=== PATIENT | female | born 1945 | race Caucasian/White ===

== ENCOUNTER 2017-08-16 09:02 | Day surgery (SDC) | payer MEDICARE, OTHER ==
[~2017-08-16] VITALS: Ht 157.5 cm; Wt 113.4 kg
[~2017-08-16 09:02] MED LIST: ABAT250V; ALLO100 PO; AMLO10 PO; ASPI81CH PO; ATEN25 PO; ATOR20 PO; Aspir-Low81 MG PO; B-100 Complex1 EACH; BENTYL20 MG PO; CHOL10002; Cipro500 MG PO; FISH OIL 1,0001 EAC1 PO; FISH1000 PO; FURO20 PO; Flagyl500 MG PO; GABA300 PO; GLIM4 PO; GLYB5 PO; HYDRA25 PO; Humalog Mi100 UNIT/4; INS70/30I SC; INSLI100I; INSR10I SC; LEVO-T125 MCG PO; LEVSOD100 PO; LEVSOD125 PO; LISI10 PO; LISI5 PO; LOPE2C PO; LUTEIN1 GM; MAGOXI400 PO; METF500 PO; METFORMIN HCL500 MG PO; METO100ER PO; MILK THISTLE140 MG; PSEU120ER; Percocet 5-3251 EACH PO; Prinivil10 MG PO; QUET25 PO; ROSU5 PO; Selenium50 MCG; Toprol Xl25 MG PO; VITAMIN D-32000 UNIT PO; Veramyst10 GM NS; Zofran Odt4 MG SL
[2017-10-23] MEDS ORDERED: OCCUVITE PO (10:01)
[2017-10-23] MEDS ORDERED: Vitamin B Comple1 EA PO (10:02)
[2017-10-23] MEDS ORDERED: LUTEIN1 GM PO (10:02)
[2017-10-23] MEDS ORDERED: AMLO10 PO (10:02)
[2017-10-23] MEDS ORDERED: HYDRA25 PO (10:03)
== END 2017-08-16 11:26 | disposition home or self-care (01) ==
LOC: ORSCSDS 09:02
PROVIDERS: Ophthalmology
PROC: 08RJ3JZ Replacement of Right Lens with Synthetic Substitute, Percutaneous Approach (ICD-10-PCS; principal; 2017-08-16 10:30)
DX: H25.11 Age-related nuclear cataract, right eye (principal); G47.33 Obstructive sleep apnea (adult) (pediatric); E11.9 Type 2 diabetes mellitus without complications; I10 Essential (primary) hypertension; Z87.891 Personal history of nicotine dependence; E03.9 Hypothyroidism, unspecified; Z79.82 Long term (current) use of aspirin; Z79.4 Long term (current) use of insulin; Z79.899 Other long term (current) drug therapy
CPT/HCPCS: 82947; J2250; J3010; J7040; V2632

== ENCOUNTER 2017-09-17 07:19 | Day surgery (SDC) | payer MEDICARE, OTHER ==
[2017-10-23] MEDS ORDERED: OCCUVITE PO (10:01)
[2017-10-23] MEDS ORDERED: Vitamin B Comple1 EA PO (10:02)
[2017-10-23] MEDS ORDERED: AMLO10 PO (10:02)
[2017-10-23] MEDS ORDERED: LUTEIN1 GM PO (10:02)
[2017-10-23] MEDS ORDERED: HYDRA25 PO (10:03)
== END 2017-09-17 23:14 | disposition home or self-care (01) ==
LOC: MOI MAM 07:19
PROC: 0HBT3ZX Excision of Right Breast, Percutaneous Approach, Diagnostic (ICD-10-PCS; principal; 2017-09-17)
DX: C50.811 Malignant neoplasm of overlapping sites of right female breast (principal); Z17.0 Estrogen receptor positive status [ER+]
CPT/HCPCS: 19083; 77065; 88305; 88342; 88360; A4648; G0279

== ENCOUNTER 2017-10-24 08:29 | Day surgery (SDC) | payer MEDICARE, OTHER ==
[~2017-10-24 08:29] MED LIST changes: +LUTEIN1 GM PO; +OCCUVITE PO; +Vitamin B Comple1 EA PO
== END 2017-10-24 22:35 | disposition home or self-care (01) ==
LOC: MOI US 08:29 → MOI MAM 08:45 → MOI US 08:45
PROC: BH40ZZZ Ultrasonography of Right Breast (ICD-10-PCS; principal; 2017-10-24)
DX: C50.111 Malignant neoplasm of central portion of right female breast (principal)
CPT/HCPCS: 19285; 77065

== ENCOUNTER 2017-11-05 08:12 | Day surgery (SDC) | payer MEDICARE, OTHER ==
[~2017-11-05] VITALS: Ht 157.5 cm; Wt 113.4 kg
== END 2017-11-05 22:39 | disposition home or self-care (01) ==
LOC: NM 08:12 → ORSCMMR 08:12 → NM 08:13 → ORSCMMR 22:39 → NM 22:39
PROVIDERS: Surgery
PROC: 0HHT0NZ Insertion of Tissue Expander into Right Breast, Open Approach (ICD-10-PCS; principal; 2017-11-05 11:00)
PROC: 07B50ZX Excision of Right Axillary Lymphatic, Open Approach, Diagnostic (ICD-10-PCS; principal; 2017-11-05 11:00)
PROC: 0HBT0ZZ Excision of Right Breast, Open Approach (ICD-10-PCS; principal; 2017-11-05 11:00)
DX: C50.111 Malignant neoplasm of central portion of right female breast (principal); D36.0 Benign neoplasm of lymph nodes; I10 Essential (primary) hypertension; G47.33 Obstructive sleep apnea (adult) (pediatric); E11.9 Type 2 diabetes mellitus without complications; E03.9 Hypothyroidism, unspecified; E66.01 Morbid (severe) obesity due to excess calories; Z68.42 Body mass index [BMI] 45.0-49.9, adult; Z79.899 Other long term (current) drug therapy
CPT/HCPCS: 38792; 76098; 82947; 88305; 88307; 88342; A9520; J0690; J1100; J2250; J2405; J3010; J7120; Q9968

== ENCOUNTER 2017-11-08 10:18 | Day surgery (SDC) | payer MEDICARE, OTHER | END 2017-11-08 14:28 | disposition home or self-care (01) | LOC: ORSCMMR 10:18 → ORD 12:00 → ORSCMMR 12:00 | PROVIDERS: Surgery | PROC: 0WH803Z Insertion of Infusion Device into Chest Wall, Open Approach (ICD-10-PCS; principal; 2017-11-08 12:00) | DX: C50.111 Malignant neoplasm of central portion of right female breast (principal); I10 Essential (primary) hypertension; E11.9 Type 2 diabetes mellitus without complications; G47.33 Obstructive sleep apnea (adult) (pediatric); E03.9 Hypothyroidism, unspecified; E66.01 Morbid (severe) obesity due to excess calories; Z68.42 Body mass index [BMI] 45.0-49.9, adult; Z79.4 Long term (current) use of insulin; Z79.899 Other long term (current) drug therapy | CPT/HCPCS: 82947; C1728; J1100; J2250; J2405; J7120 ==

== ENCOUNTER 2018-02-23 11:33 | Emergency (ER) | payer MEDICARE, OTHER ==
[~2018-02-23] VITALS: Ht 157.5 cm; Wt 113.4 kg
[2018-02-23 12:15] LABS: BASOPHILS ABSOLUTE AUTO 0.04 K/mm3 (0.00-0.23); BASOPHILS PERCENT AUTO 0 % (0-2); EOSINOPHILS ABSOLUTE AUTO 0.02 K/mm3 (0.00-0.68); EOSINOPHILS PERCENT AUTO 0 % (0-6); Hematocrit 35.1 % (33.0-51.0); Hemoglobin 11.5 g/dL (11.5-16.0); IMMATURE GRAN ABSOLUTE AUTO 0.15 K/mm3 (0.00-0.10); IMMATURE GRAN PERCENT AUTO 1 % (0-1); LYMPHOCYTES ABSOLUTE AUTO 0.68 K/mm3 (0.84-5.20); LYMPHOCYTES PERCENT AUTO 3 % (21-46); MONOCYTES ABSOLUTE AUTO 1.48 K/mm3 (0.16-1.47); MONOCYTES PERCENT AUTO 6 % (4-13); Mean Corpuscular HGB 30.6 pg (26.0-34.0); Mean Corpuscular HGB Conc 32.8 g/dL (31.5-36.5); Mean Corpuscular Volume 93 fL (80-100); Mean Platelet Volume 10.9 fL (9.1-12.4); NEUTROPHILS ABSOLUTE AUTO 20.65 K/mm3 (1.96-9.15); NEUTROPHILS PERCENT AUTO 90 % (41-73); Platelet Count 261 K/mm3 (150-400); RDW Coefficient Variation 14.6 % (11.7-14.2); RDW Standard Deviation 49.7 fL (35.1-46.3); Red Blood Cell Count 3.76 M/mm3 (3.80-5.20); White Blood Cell Count 23.02 K/mm3 (4.00-11.30)
[2018-02-23 12:34] LABS: Albumin, Blood 3.3 g/dL (3.4-5.0); Albumin/Globulin Ratio 0.7 (0.8-1.8); Bilirubin, Total 0.6 mg/dL (0.1-1.0); Bun/Creatinine Ratio 25.7 (12.0-20.0); Calcium, Blood 9.8 mg/dL (8.5-10.1); Creatinine, Blood 1.79 mg/dL (0.40-1.00); Potassium, Blood 4.4 mmol/L (3.5-5.5); Total Protein, Blood 8.3 g/dL (6.4-8.2)
[2018-02-23 12:51] LABS: Source, Urine Clean Catch
[2018-02-23 12:58] LABS: Blood, Urine 1+ (Neg); Glucose Qualitative, Urine Neg (Neg); Ketones, Urine Neg (Neg); Leukocyte Esterase, Urine 1+ (Neg); Nitrite, Urine Neg (Neg); Protein, Urine 1+ (Neg); Urobilinogen, Urine NORM (Normal)
[2018-02-23 13:03] LABS: Appearance, Urine Clear (Clear); Bilirubin, Urine 1+ (Neg); Color, Urine Yellow (P-Yellow)
[2018-02-23 13:04] LABS: Red Blood Cells, Urine 0-2 /hpf (0-2)
[2018-02-23 13:05] LABS: Squamous Epithelial Cells Few /hpf (Few); Transitional Epithelial Cells Mod /hpf (0-Rare)
[2018-02-23 13:06] LABS: Bacteria Few /hpf; Mucus Light (0-Heavy)
[2018-02-23 13:07] LABS: Granular Casts 0-2 /lpf (0); Hyaline Casts TNTC /lpf (0-2)
[2018-02-23 13:08] LABS: Renal Epithelial Rare /hpf (0-Rare); WBC Cast Rare /lpf (0)
[2018-02-23] MEDS ORDERED: CEPH500 PO (14:18)
== END 2018-02-23 16:05 | disposition home or self-care (01) ==
LOC: ER 11:33
PROVIDERS: Emergency Medicine
DX: T81.4XXA Infection following a procedure, initial encounter (principal); E11.9 Type 2 diabetes mellitus without complications; I10 Essential (primary) hypertension; E03.9 Hypothyroidism, unspecified; D72.829 Elevated white blood cell count, unspecified; L03.312 Cellulitis of back [any part except buttock and flank]; Z79.899 Other long term (current) drug therapy; Z79.82 Long term (current) use of aspirin; Z79.4 Long term (current) use of insulin
CPT/HCPCS: 36415; 71046; 72131; 80053; 81001; 83605; 85025; 87040; 87070; 87075; 87077; 87086; 87147; 87186; 87205; 96365; 96366; 96375; 99284-25; J0696; J3370; J7050

== ENCOUNTER 2018-02-24 04:28 | Emergency (ER) | payer MEDICARE, OTHER ==
[~2018-02-24] VITALS: Ht 154.9 cm; Wt 113.4 kg
[~2018-02-24 04:28] MED LIST changes: +CEPH500 PO
[2018-02-24 05:33] LABS: BASOPHILS ABSOLUTE AUTO 0.05 K/mm3 (0.00-0.23); BASOPHILS PERCENT AUTO 0 % (0-2); EOSINOPHILS ABSOLUTE AUTO 0.15 K/mm3 (0.00-0.68); EOSINOPHILS PERCENT AUTO 1 % (0-6); Hematocrit 32.3 % (33.0-51.0); Hemoglobin 10.6 g/dL (11.5-16.0); IMMATURE GRAN ABSOLUTE AUTO 0.14 K/mm3 (0.00-0.10); IMMATURE GRAN PERCENT AUTO 1 % (0-1); LYMPHOCYTES ABSOLUTE AUTO 0.95 K/mm3 (0.84-5.20); LYMPHOCYTES PERCENT AUTO 4 % (21-46); MONOCYTES ABSOLUTE AUTO 1.56 K/mm3 (0.16-1.47); MONOCYTES PERCENT AUTO 7 % (4-13); Mean Corpuscular HGB 31.3 pg (26.0-34.0); Mean Corpuscular HGB Conc 32.8 g/dL (31.5-36.5); Mean Corpuscular Volume 95 fL (80-100); Mean Platelet Volume 11.1 fL (9.1-12.4); NEUTROPHILS ABSOLUTE AUTO 19.27 K/mm3 (1.96-9.15); NEUTROPHILS PERCENT AUTO 87 % (41-73); Platelet Count 222 K/mm3 (150-400); RDW Coefficient Variation 14.8 % (11.7-14.2); RDW Standard Deviation 51.4 fL (35.1-46.3); Red Blood Cell Count 3.39 M/mm3 (3.80-5.20); White Blood Cell Count 22.12 K/mm3 (4.00-11.30)
[2018-02-24 05:53] LABS: Albumin, Blood 2.9 g/dL (3.4-5.0); Albumin/Globulin Ratio 0.6 (0.8-1.8); Bilirubin, Total 0.5 mg/dL (0.1-1.0); Calcium, Blood 9.4 mg/dL (8.5-10.1); Creatinine, Blood 1.7 mg/dL (0.40-1.00); Globulin, Blood 4.8 g/dL (2.2-4.0); Potassium, Blood 4.2 mmol/L (3.5-5.5); Total Protein, Blood 7.7 g/dL (6.4-8.2)
== END 2018-02-24 09:12 | disposition short-term general hospital (02) ==
LOC: ER 04:28
PROVIDERS: Emergency Medicine
DX: T81.4XXA Infection following a procedure, initial encounter (principal); Z79.899 Other long term (current) drug therapy; Z79.4 Long term (current) use of insulin; E11.9 Type 2 diabetes mellitus without complications; I10 Essential (primary) hypertension; E03.9 Hypothyroidism, unspecified
CPT/HCPCS: 36415; 80053; 83605; 85025; 96365; 96366; 96367; 96375; 99285-25; J2060; J2543; J3370; J7030; J7050

== ENCOUNTER 2018-05-08 00:08 | Day surgery (SDC) | payer MEDICARE, OTHER | END 2018-05-08 22:53 | disposition home or self-care (01) | LOC: WOUND 00:08 | DX: T81.32XA Disruption of internal operation (surgical) wound, not elsewhere classified, initial encounter (principal); E11.69 Type 2 diabetes mellitus with other specified complication; M46.26 Osteomyelitis of vertebra, lumbar region ==

== ENCOUNTER 2018-06-26 00:19 | Day surgery (SDC) | payer MEDICARE, OTHER | END 2018-06-26 22:49 | disposition home or self-care (01) | LOC: WOUND 00:19 | DX: T81.32XD Disruption of internal operation (surgical) wound, not elsewhere classified, subsequent encounter (principal); M46.26 Osteomyelitis of vertebra, lumbar region; E11.9 Type 2 diabetes mellitus without complications ==

== ENCOUNTER 2018-06-30 15:19 | Emergency (ER) | payer MEDICARE, OTHER ==
[~2018-06-30] VITALS: Ht 157.5 cm; Wt 113.4 kg
[2018-06-30 16:46] LABS: Alanine Aminotransfer (ALT/SGP 23 U/L (12-78); Albumin/Globulin Ratio 0.7 (0.8-1.8); Alk Phos 92 U/L (50-136); Anion Gap 8 mmol/L (6-16); Aspartate Aminotrans (AST/SGOT 21 U/L (12-37); BASOPHILS ABSOLUTE AUTO 0.05 K/mm3 (0.00-0.23); BASOPHILS PERCENT AUTO 1 % (0-2); Bilirubin, Total 0.1 mg/dL (0.1-1.0); Blood Urea Nitrogen 19 mg/dL (8-24); Bun/Creatinine Ratio 27.1 (12.0-20.0); CO2, Blood 23 mmol/L (21-32); Calcium, Blood 9.8 mg/dL (8.5-10.1); Chloride, Blood 105 mmol/L (98-108); EOSINOPHILS ABSOLUTE AUTO 0.18 K/mm3 (0.00-0.68); EOSINOPHILS PERCENT AUTO 2 % (0-6); Globulin, Blood 4.6 g/dL (2.2-4.0); Glomerular Filtration Rate >60 (60-); Glucose, Blood 183 mg/dL (70-99); Hematocrit 40.9 % (33.0-51.0); Hemoglobin 12.8 g/dL (11.5-16.0); IMMATURE GRAN ABSOLUTE AUTO 0.06 K/mm3 (0.00-0.10); IMMATURE GRAN PERCENT AUTO 1 % (0-1); LYMPHOCYTES ABSOLUTE AUTO 1.19 K/mm3 (0.84-5.20); LYMPHOCYTES PERCENT AUTO 12 % (21-46); MONOCYTES ABSOLUTE AUTO 0.72 K/mm3 (0.16-1.47); MONOCYTES PERCENT AUTO 8 % (4-13); Mean Corpuscular HGB 31.6 pg (26.0-34.0); Mean Corpuscular HGB Conc 31.3 g/dL (31.5-36.5); Mean Corpuscular Volume 101 fL (80-100); Mean Platelet Volume 10.7 fL (9.1-12.4); NEUTROPHILS ABSOLUTE AUTO 7.38 K/mm3 (1.96-9.15); NEUTROPHILS PERCENT AUTO 77 % (41-73); Platelet Count 314 K/mm3 (150-400); Potassium, Blood 5.1 mmol/L (3.5-5.5); RDW Coefficient Variation 13.2 % (11.7-14.2); RDW Standard Deviation 49.1 fL (35.1-46.3); Red Blood Cell Count 4.05 M/mm3 (3.80-5.20); Sodium, Blood 136 mmol/L (136-145); Total Protein, Blood 7.6 g/dL (6.4-8.2); White Blood Cell Count 9.58 K/mm3 (4.00-11.30)
== END 2018-06-30 19:37 | disposition home or self-care (01) ==
LOC: ER 15:19
PROVIDERS: Physician Assistant
DX: R07.89 Other chest pain (principal); I10 Essential (primary) hypertension; E11.9 Type 2 diabetes mellitus without complications; Z90.710 Acquired absence of both cervix and uterus; Z79.4 Long term (current) use of insulin; Z79.899 Other long term (current) drug therapy
CPT/HCPCS: 36415; 71046; 80053; 84484; 85025; 93005; 93010; 99285-25

== ENCOUNTER 2018-07-10 10:15 | Day surgery (SDC) | payer MEDICARE, OTHER | END 2018-07-10 22:43 | disposition home or self-care (01) | LOC: WOUND 10:15 | DX: T81.32XD Disruption of internal operation (surgical) wound, not elsewhere classified, subsequent encounter (principal); M46.26 Osteomyelitis of vertebra, lumbar region; E11.9 Type 2 diabetes mellitus without complications | CPT/HCPCS: G0463 ==

== ENCOUNTER 2018-07-17 10:11 | Day surgery (SDC) | payer MEDICARE, OTHER | END 2018-07-17 22:39 | disposition home or self-care (01) | LOC: WOUND 10:11 | DX: T81.32XD Disruption of internal operation (surgical) wound, not elsewhere classified, subsequent encounter (principal); M46.26 Osteomyelitis of vertebra, lumbar region; E11.9 Type 2 diabetes mellitus without complications; I10 Essential (primary) hypertension; Z79.4 Long term (current) use of insulin ==

== ENCOUNTER 2018-07-24 00:18 | Day surgery (SDC) | payer MEDICARE, OTHER | END 2018-07-24 22:37 | disposition home or self-care (01) | LOC: WOUND 00:18 | DX: T81.32XD Disruption of internal operation (surgical) wound, not elsewhere classified, subsequent encounter (principal); M46.26 Osteomyelitis of vertebra, lumbar region; E11.9 Type 2 diabetes mellitus without complications; I10 Essential (primary) hypertension ==

== ENCOUNTER 2018-07-31 00:18 | Day surgery (SDC) | payer MEDICARE, OTHER | END 2018-07-31 22:40 | disposition home or self-care (01) | LOC: WOUND 00:18 | DX: T81.32XA Disruption of internal operation (surgical) wound, not elsewhere classified, initial encounter (principal); S31.000A Unspecified open wound of lower back and pelvis without penetration into retroperitoneum, initial encounter; M46.26 Osteomyelitis of vertebra, lumbar region; E11.9 Type 2 diabetes mellitus without complications ==

== ENCOUNTER 2018-08-14 10:15 | Day surgery (SDC) | payer MEDICARE, OTHER | END 2018-08-14 22:59 | disposition home or self-care (01) | LOC: WOUND 10:15 | DX: T81.32XA Disruption of internal operation (surgical) wound, not elsewhere classified, initial encounter (principal); E11.69 Type 2 diabetes mellitus with other specified complication; M46.26 Osteomyelitis of vertebra, lumbar region ==

== ENCOUNTER 2018-08-21 00:34 | Day surgery (SDC) | payer MEDICARE, OTHER | END 2018-08-21 22:46 | disposition home or self-care (01) | LOC: WOUND 00:34 | DX: T81.32XD Disruption of internal operation (surgical) wound, not elsewhere classified, subsequent encounter (principal); M46.26 Osteomyelitis of vertebra, lumbar region; E11.9 Type 2 diabetes mellitus without complications; Z79.4 Long term (current) use of insulin ==

== ENCOUNTER 2018-08-28 00:31 | Day surgery (SDC) | payer MEDICARE, OTHER | END 2018-08-28 22:43 | disposition home or self-care (01) | LOC: WOUND 00:31 | DX: T81.32XD Disruption of internal operation (surgical) wound, not elsewhere classified, subsequent encounter (principal); M46.26 Osteomyelitis of vertebra, lumbar region; E11.9 Type 2 diabetes mellitus without complications; Z79.4 Long term (current) use of insulin ==

== ENCOUNTER 2018-09-18 00:28 | Day surgery (SDC) | payer MEDICARE, OTHER | END 2018-09-18 22:47 | disposition home or self-care (01) | LOC: WOUND 00:28 | DX: T81.32XA Disruption of internal operation (surgical) wound, not elsewhere classified, initial encounter (principal); E11.622 Type 2 diabetes mellitus with other skin ulcer; L98.422 Non-pressure chronic ulcer of back with fat layer exposed; M46.26 Osteomyelitis of vertebra, lumbar region; J44.9 Chronic obstructive pulmonary disease, unspecified; I10 Essential (primary) hypertension; G47.30 Sleep apnea, unspecified; Z98.49 Cataract extraction status, unspecified eye; Z98.890 Other specified postprocedural states ==

== ENCOUNTER 2018-09-25 00:36 | Day surgery (SDC) | payer MEDICARE, OTHER | END 2018-09-25 22:35 | disposition home or self-care (01) | LOC: WOUND 00:36 | DX: T81.32XA Disruption of internal operation (surgical) wound, not elsewhere classified, initial encounter (principal); E11.622 Type 2 diabetes mellitus with other skin ulcer; L98.422 Non-pressure chronic ulcer of back with fat layer exposed; M46.26 Osteomyelitis of vertebra, lumbar region; Z98.890 Other specified postprocedural states ==

== ENCOUNTER 2018-10-02 00:06 | Day surgery (SDC) | payer MEDICARE, OTHER | END 2018-10-02 22:40 | disposition home or self-care (01) | LOC: WOUND 00:06 | DX: T81.32XA Disruption of internal operation (surgical) wound, not elsewhere classified, initial encounter (principal); M46.26 Osteomyelitis of vertebra, lumbar region; J44.9 Chronic obstructive pulmonary disease, unspecified; G47.30 Sleep apnea, unspecified; I10 Essential (primary) hypertension; E11.36 Type 2 diabetes mellitus with diabetic cataract; E11.69 Type 2 diabetes mellitus with other specified complication; M86.9 Osteomyelitis, unspecified ==

== ENCOUNTER 2018-10-30 09:54 | Day surgery (SDC) | payer MEDICARE, OTHER | END 2018-10-30 22:50 | disposition home or self-care (01) | LOC: WOUND 09:54 | DX: T81.32XA Disruption of internal operation (surgical) wound, not elsewhere classified, initial encounter (principal); M46.26 Osteomyelitis of vertebra, lumbar region; E11.9 Type 2 diabetes mellitus without complications; J44.9 Chronic obstructive pulmonary disease, unspecified; G47.30 Sleep apnea, unspecified; I10 Essential (primary) hypertension; M10.9 Gout, unspecified ==

== ENCOUNTER 2018-11-06 09:30 | Day surgery (SDC) | payer MEDICARE, OTHER | END 2018-11-06 22:43 | disposition home or self-care (01) | LOC: WOUND 09:30 | DX: T81.31XA Disruption of external operation (surgical) wound, not elsewhere classified, initial encounter (principal); E11.69 Type 2 diabetes mellitus with other specified complication; M46.26 Osteomyelitis of vertebra, lumbar region; I10 Essential (primary) hypertension; J44.9 Chronic obstructive pulmonary disease, unspecified; G47.30 Sleep apnea, unspecified; Z98.890 Other specified postprocedural states ==

== ENCOUNTER 2018-12-04 15:29 | Day surgery (SDC) | payer MEDICARE, OTHER | END 2018-12-04 22:54 | disposition home or self-care (01) | LOC: WOUND 15:29 | DX: T81.32XA Disruption of internal operation (surgical) wound, not elsewhere classified, initial encounter (principal); M46.26 Osteomyelitis of vertebra, lumbar region; E11.9 Type 2 diabetes mellitus without complications; J44.9 Chronic obstructive pulmonary disease, unspecified; G47.30 Sleep apnea, unspecified; M10.9 Gout, unspecified | CPT/HCPCS: G0463 ==

== ENCOUNTER 2018-12-11 00:26 | Day surgery (SDC) | payer MEDICARE, OTHER | END 2018-12-11 22:53 | disposition home or self-care (01) | LOC: WOUND 00:26 | DX: T81.32XA Disruption of internal operation (surgical) wound, not elsewhere classified, initial encounter (principal); J44.9 Chronic obstructive pulmonary disease, unspecified; E11.36 Type 2 diabetes mellitus with diabetic cataract; I10 Essential (primary) hypertension | CPT/HCPCS: G0463 ==

== ENCOUNTER 2018-12-18 09:54 | Day surgery (SDC) | payer MEDICARE, OTHER | END 2018-12-18 23:07 | disposition home or self-care (01) | LOC: WOUND 09:54 | DX: T81.32XA Disruption of internal operation (surgical) wound, not elsewhere classified, initial encounter (principal); M46.26 Osteomyelitis of vertebra, lumbar region; E11.9 Type 2 diabetes mellitus without complications; I10 Essential (primary) hypertension; J44.9 Chronic obstructive pulmonary disease, unspecified; G47.30 Sleep apnea, unspecified | CPT/HCPCS: Q4196 ==

== ENCOUNTER 2018-12-25 09:40 | Day surgery (SDC) | payer MEDICARE, OTHER | END 2018-12-25 22:49 | disposition home or self-care (01) | LOC: WOUND 09:40 | DX: T81.32XA Disruption of internal operation (surgical) wound, not elsewhere classified, initial encounter (principal); I10 Essential (primary) hypertension; E11.9 Type 2 diabetes mellitus without complications; J44.9 Chronic obstructive pulmonary disease, unspecified; G47.30 Sleep apnea, unspecified; Z98.890 Other specified postprocedural states | CPT/HCPCS: Q4196 ==

== ENCOUNTER 2019-01-01 10:00 | Day surgery (SDC) | payer MEDICARE, OTHER | END 2019-01-01 23:07 | disposition home or self-care (01) | LOC: WOUND 10:00 | DX: T81.32XA Disruption of internal operation (surgical) wound, not elsewhere classified, initial encounter (principal); E11.69 Type 2 diabetes mellitus with other specified complication; M46.26 Osteomyelitis of vertebra, lumbar region; M10.9 Gout, unspecified; G47.30 Sleep apnea, unspecified; J44.9 Chronic obstructive pulmonary disease, unspecified; E11.36 Type 2 diabetes mellitus with diabetic cataract | CPT/HCPCS: Q4196 ==

== ENCOUNTER 2019-01-08 10:00 | Day surgery (SDC) | payer MEDICARE, OTHER | END 2019-01-08 23:38 | disposition home or self-care (01) | LOC: WOUND 10:00 | DX: T81.32XA Disruption of internal operation (surgical) wound, not elsewhere classified, initial encounter (principal); E11.69 Type 2 diabetes mellitus with other specified complication; M46.26 Osteomyelitis of vertebra, lumbar region; I10 Essential (primary) hypertension; J44.9 Chronic obstructive pulmonary disease, unspecified; G47.30 Sleep apnea, unspecified | CPT/HCPCS: Q4196 ==

== ENCOUNTER 2019-01-15 09:47 | Day surgery (SDC) | payer MEDICARE, OTHER | END 2019-01-15 23:00 | disposition home or self-care (01) | LOC: WOUND 09:47 | DX: T81.32XA Disruption of internal operation (surgical) wound, not elsewhere classified, initial encounter (principal); M46.26 Osteomyelitis of vertebra, lumbar region; I10 Essential (primary) hypertension; E11.9 Type 2 diabetes mellitus without complications; J44.9 Chronic obstructive pulmonary disease, unspecified; G47.30 Sleep apnea, unspecified | CPT/HCPCS: 87070; 87075; 87205; G0463 ==

== ENCOUNTER 2019-01-24 10:46 | Day surgery (SDC) | payer MEDICARE, OTHER | END 2019-01-24 23:43 | disposition home or self-care (01) | LOC: WOUND 10:46 | DX: T81.31XA Disruption of external operation (surgical) wound, not elsewhere classified, initial encounter (principal); M46.26 Osteomyelitis of vertebra, lumbar region; E11.9 Type 2 diabetes mellitus without complications; Z98.1 Arthrodesis status | CPT/HCPCS: G0463 ==

== ENCOUNTER 2019-01-31 02:43 | Day surgery (SDC) | payer MEDICARE, OTHER | END 2019-01-31 23:06 | disposition home or self-care (01) | LOC: WOUND 02:43 | DX: T81.32XA Disruption of internal operation (surgical) wound, not elsewhere classified, initial encounter (principal); M46.26 Osteomyelitis of vertebra, lumbar region; E11.9 Type 2 diabetes mellitus without complications ==

== ENCOUNTER 2019-02-07 02:22 | Day surgery (SDC) | payer MEDICARE, OTHER | END 2019-02-07 23:24 | disposition home or self-care (01) | LOC: WOUND 02:22 | DX: T81.32XA Disruption of internal operation (surgical) wound, not elsewhere classified, initial encounter (principal); E11.622 Type 2 diabetes mellitus with other skin ulcer; L98.422 Non-pressure chronic ulcer of back with fat layer exposed; E11.69 Type 2 diabetes mellitus with other specified complication; M46.26 Osteomyelitis of vertebra, lumbar region; I10 Essential (primary) hypertension | CPT/HCPCS: G0463 ==

== ENCOUNTER 2019-02-14 10:54 | Day surgery (SDC) | payer MEDICARE, OTHER | END 2019-02-14 23:13 | disposition home or self-care (01) | LOC: WOUND 10:54 | DX: T81.32XA Disruption of internal operation (surgical) wound, not elsewhere classified, initial encounter (principal); E11.69 Type 2 diabetes mellitus with other specified complication; M46.26 Osteomyelitis of vertebra, lumbar region ==

== ENCOUNTER 2019-02-21 02:06 | Day surgery (SDC) | payer MEDICARE, OTHER | END 2019-02-22 00:03 | disposition home or self-care (01) | LOC: WOUND 02:06 | DX: T81.32XA Disruption of internal operation (surgical) wound, not elsewhere classified, initial encounter (principal); M46.26 Osteomyelitis of vertebra, lumbar region; E11.9 Type 2 diabetes mellitus without complications ==

== ENCOUNTER 2019-02-28 10:51 | Day surgery (SDC) | payer MEDICARE, OTHER | END 2019-02-28 23:09 | disposition home or self-care (01) | LOC: WOUND 10:51 | DX: T81.32XA Disruption of internal operation (surgical) wound, not elsewhere classified, initial encounter (principal); E11.69 Type 2 diabetes mellitus with other specified complication; M46.26 Osteomyelitis of vertebra, lumbar region; Z98.1 Arthrodesis status ==

== ENCOUNTER 2019-03-21 10:46 | Day surgery (SDC) | payer MEDICARE, OTHER | END 2019-03-21 22:43 | disposition home or self-care (01) | LOC: WOUND 10:46 | DX: T81.32XA Disruption of internal operation (surgical) wound, not elsewhere classified, initial encounter (principal); E11.9 Type 2 diabetes mellitus without complications; I10 Essential (primary) hypertension; Z98.890 Other specified postprocedural states ==

== ENCOUNTER 2019-03-28 00:52 | Day surgery (SDC) | payer MEDICARE, OTHER | END 2019-03-28 23:29 | disposition home or self-care (01) | LOC: WOUND 00:52 | DX: T81.32XA Disruption of internal operation (surgical) wound, not elsewhere classified, initial encounter (principal); E11.9 Type 2 diabetes mellitus without complications ==

== ENCOUNTER 2021-03-01 15:40 | Inpatient (IN) | payer MEDICARE, OTHER ==
[~2021-03-01] VITALS: Ht 147.3 cm; Wt 90.8 kg
[~2021-03-01 15:40] MED LIST changes: +METO50ER PO; -Toprol Xl25 MG PO
[2021-03-01 17:03] LABS: BASOPHILS ABSOLUTE AUTO 0.01 K/mm3 (0.00-0.23); BASOPHILS PERCENT AUTO 0 % (0-2); EOSINOPHILS PERCENT AUTO 0 % (0-6); Hemoglobin 13.7 g/dL (11.5-16.0); IMMATURE GRAN ABSOLUTE AUTO 0.06 K/mm3 (0.00-0.10); IMMATURE GRAN PERCENT AUTO 1 % (0-1); LYMPHOCYTES ABSOLUTE AUTO 1.48 K/mm3 (0.84-5.20); LYMPHOCYTES PERCENT AUTO 15 % (21-46); MONOCYTES ABSOLUTE AUTO 0.68 K/mm3 (0.16-1.47); MONOCYTES PERCENT AUTO 7 % (4-13); Mean Corpuscular HGB 31.5 pg (26.0-34.0); Mean Corpuscular HGB Conc 33.4 g/dL (31.5-36.5); Mean Corpuscular Volume 94 fL (80-100); Mean Platelet Volume 11.4 fL (9.1-12.4); NEUTROPHILS ABSOLUTE AUTO 7.56 K/mm3 (1.96-9.15); NEUTROPHILS PERCENT AUTO 77 % (41-73); Platelet Count 245 K/mm3 (150-400); RDW Coefficient Variation 14.4 % (11.7-14.2); RDW Standard Deviation 49.3 fL (35.1-46.3); Red Blood Cell Count 4.35 M/mm3 (3.80-5.20); White Blood Cell Count 9.79 K/mm3 (4.00-11.30)
[2021-03-01 17:29] LABS: Source, Urine Catheter
[2021-03-01 17:36] LABS: Alanine Aminotransfer (ALT/SGP 23 U/L (12-78); Albumin, Blood 2.3 g/dL (3.4-5.0); Albumin/Globulin Ratio 0.5 (0.8-1.8); Alk Phos 96 U/L (50-136); Anion Gap 10 mmol/L (6-16); Aspartate Aminotrans (AST/SGOT 41 U/L (12-37); Bilirubin, Total 0.4 mg/dL (0.1-1.0); Blood Urea Nitrogen 74 mg/dL (8-24); Bun/Creatinine Ratio 43.8 (12.0-20.0); CO2, Blood 21 mmol/L (21-32); Chloride, Blood 100 mmol/L (98-108); Creatinine, Blood 1.69 mg/dL (0.40-1.00); Globulin, Blood 4.4 g/dL (2.2-4.0); Glomerular Filtration Rate 29 (60-); Glucose, Blood 260 mg/dL (70-99); Magnesium, Blood 2.3 mg/dL (1.6-2.4); Potassium, Blood 5.2 mmol/L (3.5-5.5); Sodium, Blood 131 mmol/L (136-145); Total Protein, Blood 6.7 g/dL (6.4-8.2); Troponin I <0.015 ng/mL (0.000-0.040)
[2021-03-01 17:39] LABS: Appearance, Urine Clear (Clear); Bilirubin, Urine Neg (Neg); Blood, Urine Neg (Neg); Color, Urine Yellow (P-Yellow); Glucose Qualitative, Urine Neg (Neg); Ketones, Urine Neg (Neg); Leukocyte Esterase, Urine Neg (Neg); Nitrite, Urine Neg (Neg); Protein, Urine 1+ (Neg); Urobilinogen, Urine NORM (Normal)
[2021-03-01 17:40] LABS: Thyroid Stimulating Hormone 0.171 uIU/mL (0.360-4.800)
[2021-03-01] MEDS ORDERED: ASPI81CH PO (18:10)
[2021-03-01] MEDS ORDERED: DULO60 PO (18:11)
[2021-03-01 18:21] LABS: SARS-Cov-2 (COVID-19) PCR, MMC POSITIVE (NEGATIVE)
[2021-03-02] MEDS ORDERED: ATOR10 PO (00:21)
[2021-03-02] MEDS ORDERED: HYDR10 PO (00:21)
[2021-03-02] MEDS ORDERED: MINO50 PO (00:28)
[2021-03-02] MEDS ORDERED: OZEMPIC0.25 MG/0. SC (00:30)
[2021-03-02] MEDS ORDERED: TRESIBA FL100 UNIT/2 SC (00:32)
[2021-03-02 03:41] LABS: BASOPHILS ABSOLUTE AUTO 0.02 K/mm3 (0.00-0.23); BASOPHILS PERCENT AUTO 0 % (0-2); EOSINOPHILS ABSOLUTE AUTO 0.02 K/mm3 (0.00-0.68); EOSINOPHILS PERCENT AUTO 0 % (0-6); Hematocrit 38.8 % (33.0-51.0); Hemoglobin 13.4 g/dL (11.5-16.0); IMMATURE GRAN ABSOLUTE AUTO 0.04 K/mm3 (0.00-0.10); IMMATURE GRAN PERCENT AUTO 1 % (0-1); LYMPHOCYTES ABSOLUTE AUTO 1.57 K/mm3 (0.84-5.20); LYMPHOCYTES PERCENT AUTO 18 % (21-46); MONOCYTES ABSOLUTE AUTO 0.79 K/mm3 (0.16-1.47); MONOCYTES PERCENT AUTO 9 % (4-13); Mean Corpuscular HGB 31.7 pg (26.0-34.0); Mean Corpuscular HGB Conc 34.5 g/dL (31.5-36.5); Mean Corpuscular Volume 92 fL (80-100); Mean Platelet Volume 11.3 fL (9.1-12.4); NEUTROPHILS ABSOLUTE AUTO 6.37 K/mm3 (1.96-9.15); NEUTROPHILS PERCENT AUTO 72 % (41-73); Platelet Count 201 K/mm3 (150-400); RDW Coefficient Variation 14.2 % (11.7-14.2); Red Blood Cell Count 4.23 M/mm3 (3.80-5.20); White Blood Cell Count 8.81 K/mm3 (4.00-11.30)
[2021-03-02 03:56] LABS: Albumin, Blood 2.1 g/dL (3.4-5.0); Albumin/Globulin Ratio 0.5 (0.8-1.8); Bilirubin, Total 0.4 mg/dL (0.1-1.0); Bun/Creatinine Ratio 53.4 (12.0-20.0); Calcium, Blood 8.8 mg/dL (8.5-10.1); Creatinine, Blood 1.33 mg/dL (0.40-1.00); Globulin, Blood 4.1 g/dL (2.2-4.0); Potassium, Blood 4.8 mmol/L (3.5-5.5); Total Protein, Blood 6.2 g/dL (6.4-8.2)
--- NOTE | 2021-03-02 05:54 | NUR ---
SUMMARY PT IS PLEASANTLY CONFUSED, SHE IS ALERT TO HERSELF & FAMILY, COOPERATIVE WITH CARE. SHE IS CURRENTLY ON 3L 02 VIA NC, SPO2 >93%, OCCASIONAL COUGH NOTED,PT DENIES SOB. NS INFUSING PER EMAR, BP WNL, PT DENIES PAIN. ATTENDS IN PLACE & CHANGED PRN. URINE INCONTINENCE NOTED, GUIAC REPORTED TO BE NEGATIVE. NS INFUSING PER EMAR @ 75 MLS PER HOUR. PT APPEARS TO BE RESTING QUIETLY AT THIS TIME.CALL LIGHT IN REACH, WCTM AT THIS TIME.
--- NOTE | 2021-03-02 10:28 | NUR ---
AM NOTE... ASSUMED CARE OF PT AT 0700, PT IS A&Ox3 AND PLEASENTLY CONFUSED, PT IS ON 3L NC WITH O2 SATS >94% L/S CLEAR IN THE UPPER LOBES WITH FINE CRACKLES NOTED IN THE BASES. PT IS IN SR W/PACs IN THE 70'S-80'S PT'S BP STABLE AT THIS TIME. NO EDEMA NOTED ON ASSESSMENT. BT PRESENT AND HYPOACTIVE, PT HAS INCONT OF URINE AT TIMES BUT ALSO ABLE TO USE THE BSC. PT WAS A 1 PERSON MIN ASSIST WITH A WALKER TO THE BSC. PT'S O2 WAS TURNED DOWN FROM 3L TO 2L WITH THE PT'S O2 SATS >90%. PROVIDER AT THE BEDSIDE FOR ASSESSMENT, PLAN IS TO SEND THE PT HOME LATER THIS AFTERNOON IF SHE CONTINUES TO DO WELL. WILL CONITNUE TO MONITOR.
--- NOTE | 2021-03-02 11:04 | NUR ---
PT UPDATE... PT'S DAUGHTER CALLED AND UPDATED ON THE PT'S CONDITION AND PLAN OF CARE, PLAN IS TO TO TRANSFER THE PT TO MEDICAL FLOOR AND HOPEFULLY HOME TOMORROW.
--- NOTE | 2021-03-02 13:52 | NUR ---
PT UPDATE... PT CHANGED TO MEDICAL STATUS, NO ACUTE NEGATIVE CHANGES NOTED. PT IS TOLERATING 2L NC WELL WITH O2 SATS >90%, WHEN PT IS NOT ACTIVE SHE CAN BE ON RA WITH O2 SATS >90%. PT USES A CPAP AT NIGHT AT HOME, FAMILY TO BRING IN. PT WORKED WITH PT/OT AND DID WELL TODAY. WILL CONTINUE TO MONITOR UNTIL PT IS TRANSFERED TO MEDICAL FLOOR.
[2021-03-02] MEDS ORDERED: PREVAGEN PO (14:00)
[2021-03-02] MEDS ORDERED: LETR2.5 PO (14:06)
[2021-03-02] MEDS ORDERED: CYMBALTA30 M1 PO (14:06)
--- NOTE | 2021-03-02 14:57 | NUR ---
RN NOTE: PT TRANSFERRED TO MY [facility] ON MEDICAL FLOOR. REPORT RECEIVED FROM RAH SURESH. PT ORIENTED TO ROOM AND CALL LIGHT. BED IN LOW POSITION AND BED ALARM ON. NO ACUTE CONCERNS ON TRANSFER. PT ON 2 LPM VIA NC. TELE WAS DC'D PRIOR TO COMING ON SHIFT. PT A/O TO SELF AND SITUATION AND ABLE TO RESPOND TO QUESTIONS APPROPRIATELY.
[2021-03-03 05:59] LABS: BASOPHILS ABSOLUTE AUTO 0.03 K/mm3 (0.00-0.23); BASOPHILS PERCENT AUTO 0 % (0-2); EOSINOPHILS PERCENT AUTO 0 % (0-6); Hematocrit 41.4 % (33.0-51.0); Hemoglobin 13.6 g/dL (11.5-16.0); IMMATURE GRAN ABSOLUTE AUTO 0.15 K/mm3 (0.00-0.10); IMMATURE GRAN PERCENT AUTO 2 % (0-1); LYMPHOCYTES ABSOLUTE AUTO 1.29 K/mm3 (0.84-5.20); LYMPHOCYTES PERCENT AUTO 16 % (21-46); MONOCYTES ABSOLUTE AUTO 0.52 K/mm3 (0.16-1.47); MONOCYTES PERCENT AUTO 6 % (4-13); Mean Corpuscular HGB 31.8 pg (26.0-34.0); Mean Corpuscular HGB Conc 32.9 g/dL (31.5-36.5); Mean Platelet Volume 11.5 fL (9.1-12.4); NEUTROPHILS ABSOLUTE AUTO 6.09 K/mm3 (1.96-9.15); NEUTROPHILS PERCENT AUTO 75 % (41-73); Platelet Count 225 K/mm3 (150-400); RDW Coefficient Variation 14.7 % (11.7-14.2); RDW Standard Deviation 52.4 fL (35.1-46.3); Red Blood Cell Count 4.28 M/mm3 (3.80-5.20); White Blood Cell Count 8.08 K/mm3 (4.00-11.30)
[2021-03-03 06:00] LABS: Mean Corpuscular Volume 97 fL (80-100)
[2021-03-03 06:22] LABS: Magnesium, Blood 2.4 mg/dL (1.6-2.4)
[2021-03-03 06:27] LABS: Calcium, Blood 9.3 mg/dL (8.5-10.1); Creatinine, Blood 0.94 mg/dL (0.40-1.00); Phosphorus, Blood 3.4 mg/dL (2.5-4.9); Potassium, Blood 6.5 mmol/L (3.5-5.5)
--- NOTE | 2021-03-03 07:50 | NUR ---
SHIFT SUMMARY PATIENT ALERT AND ORIENTED X3. MEDICATED PER EMAR FOR NAUSEA. WAS NOTIFIED BY LAB THAT PATIENT HAD CRITICAL HIGH POTASSIUM OF 6.5. ORDERS RECEIVED FROM DR GRACIA.
[2021-03-03 10:51] LABS: Bun/Creatinine Ratio 48.1 (12.0-20.0); Calcium, Blood 10.2 mg/dL (8.5-10.1); Creatinine, Blood 0.96 mg/dL (0.40-1.00); Potassium, Blood 5.6 mmol/L (3.5-5.5)
[2021-03-03] MEDS ORDERED: DEXA4 PO (15:21)
[2021-03-03 16:37] LABS: Bun/Creatinine Ratio 44.8 (12.0-20.0); Calcium, Blood 10.3 mg/dL (8.5-10.1); Creatinine, Blood 0.98 mg/dL (0.40-1.00)
--- NOTE | 2021-03-03 16:46 | NUR ---
PT AOX3 WITH CONFUSION. PT STARTED SHIFT WITH A CRITICAL HIGH POTASSUIM OF 6.5 AND WAS TREATED PER EMAR. PT HAS BEEN DOING WELL AND RIDE WAS ARRANAGED IF POTASSIUM WAS IN NORMAL RANGE. POTASSIUM CAME BACK 6.0. DR GRACIA NOTFIED. IV NOT WORKING AT THIS TIME [employer] EXECUTIVE TRYING TO GET PLACEMENT OF IV. DISCHARGE IS DC'D AT THIS TIME. WILL CONTINUE TO MONITOR.
[2021-03-03 23:13] LABS: Bun/Creatinine Ratio 42.7 (12.0-20.0); Calcium, Blood 10.9 mg/dL (8.5-10.1); Creatinine, Blood 1.03 mg/dL (0.40-1.00); Potassium, Blood 6.3 mmol/L (3.5-5.5)
--- NOTE | 2021-03-04 07:08 | NUR ---
SHIFT SUMMARY PATIENT ALERT AND ORIENTED X2. NO COMPLAINTS OF PAIN OR SHORTNESS OF BREATH. MEDICATED PER MD ORDER FOR POTASSIUM OF 6.3. IV PATENT AND FLUSHED. BED IN LOWEST POSITION WITH WHEELS LOCKED AND ALARM ON. CALL LIGHT WITHIN REACH. REPORT GIVEN TO ONCOMING RN.
[2021-03-04 07:26] LABS: Bun/Creatinine Ratio 41.6 (12.0-20.0); Calcium, Blood 10.7 mg/dL (8.5-10.1); Creatinine, Blood 1.13 mg/dL (0.40-1.00); Potassium, Blood 5.8 mmol/L (3.5-5.5)
[2021-03-04 14:03] LABS: Bun/Creatinine Ratio 43.9 (12.0-20.0); Calcium, Blood 10.4 mg/dL (8.5-10.1); Creatinine, Blood 1.14 mg/dL (0.40-1.00); Potassium, Blood 5.6 mmol/L (3.5-5.5)
--- NOTE | 2021-03-04 16:06 | NUR ---
PT AOX3 AND PLEASANTLY CONFUSED. PT CALLS,BUT CAN BE IMPULSIVE AND BED ALARM IS IN PLACE. PT IS INCONTENT OF URINE. POTASSIUM WAS 5.8 AND WILL BE RECHECK TODAY. IV WENT BAD AND WAS REMOVED. NO IV ACCESS ORDER PLACED. CALL LIGHT IS WITHIN REACH WILL CONTINUE TO MONITOR.
[2021-03-04 22:45] LABS: Bun/Creatinine Ratio 43.8 (12.0-20.0); Calcium, Blood 10.2 mg/dL (8.5-10.1); Creatinine, Blood 1.28 mg/dL (0.40-1.00); Potassium, Blood 5.7 mmol/L (3.5-5.5)
[2021-03-05 07:16] LABS: BASOPHILS ABSOLUTE AUTO 0.07 K/mm3 (0.00-0.23); BASOPHILS PERCENT AUTO 1 % (0-2); EOSINOPHILS PERCENT AUTO 0 % (0-6); Hematocrit 41.7 % (33.0-51.0); Hemoglobin 13.9 g/dL (11.5-16.0); IMMATURE GRAN ABSOLUTE AUTO 0.74 K/mm3 (0.00-0.10); IMMATURE GRAN PERCENT AUTO 6 % (0-1); LYMPHOCYTES ABSOLUTE AUTO 1.39 K/mm3 (0.84-5.20); LYMPHOCYTES PERCENT AUTO 12 % (21-46); MONOCYTES ABSOLUTE AUTO 0.77 K/mm3 (0.16-1.47); MONOCYTES PERCENT AUTO 7 % (4-13); Mean Corpuscular HGB 31.6 pg (26.0-34.0); Mean Corpuscular HGB Conc 33.3 g/dL (31.5-36.5); Mean Corpuscular Volume 95 fL (80-100); Mean Platelet Volume 10.7 fL (9.1-12.4); NEUTROPHILS ABSOLUTE AUTO 8.66 K/mm3 (1.96-9.15); NEUTROPHILS PERCENT AUTO 74 % (41-73); Platelet Count 375 K/mm3 (150-400); RDW Coefficient Variation 14.3 % (11.7-14.2); RDW Standard Deviation 49.2 fL (35.1-46.3); White Blood Cell Count 11.63 K/mm3 (4.00-11.30)
--- NOTE | 2021-03-05 07:24 | NUR ---
SHIFT SUMMARY PATIENT ALERT AND ORIENTED X2. NO ACUTE ISSUES NOTED OVERNIGHT.
[2021-03-05 07:34] LABS: Bun/Creatinine Ratio 46.5 (12.0-20.0); Calcium, Blood 10.5 mg/dL (8.5-10.1); Creatinine, Blood 1.27 mg/dL (0.40-1.00); Potassium, Blood 5.3 mmol/L (3.5-5.5)
--- NOTE | 2021-03-05 09:31 | NUR ---
POOR APPETITE. PER ONLY GIVE 5 UNITS FAST ACTING AND GIVE 15 UNITS LONG ACTING INSULIN.
[2021-03-05 09:52] LABS: Source, Urine Catheter
[2021-03-05 10:02] LABS: Appearance, Urine Clear (Clear); Bilirubin, Urine Neg (Neg); Blood, Urine Neg (Neg); Color, Urine Yellow (P-Yellow); Glucose Qualitative, Urine Neg (Neg); Ketones, Urine Neg (Neg); Leukocyte Esterase, Urine Neg (Neg); Nitrite, Urine Neg (Neg); Protein, Urine Neg (Neg); Urobilinogen, Urine NORM (Normal)
[2021-03-05 16:43] LABS: Base Excess Venous 2.4 mmol/L; Bicarbonate Venous 26.3 mmol/L (24.0-30.0); PCO2 Venous 38.3 mmHg (38-42); PO2 Venous 58.9 mmHg (38-42); pH Blood Venous 7.45 (7.34-7.37)
--- NOTE | 2021-03-05 18:18 | NUR ---
ALERT TO SELF AND AT TIMES ORIENTED. HX DEMENTIA. UNLABORED RESPIRATIONS. POOR APPETITE. POSSIBLE D'C TO MEMORY CARE NEXT WEEK PATIENT NORMALLY LIVES ALONE. WCTM
[2021-03-06 06:38] LABS: Bun/Creatinine Ratio 51.8 (12.0-20.0); Calcium, Blood 10.1 mg/dL (8.5-10.1); Creatinine, Blood 1.12 mg/dL (0.40-1.00); Potassium, Blood 5.1 mmol/L (3.5-5.5)
--- NOTE | 2021-03-06 08:01 | NUR ---
SHIFT SUMMARY PT WITH INCREASED WEAKNESS THIS MORNING, RN ASSISTED PT TO WALK TO THE BATHROOM. PT WAS PUTTING HER HAND TO HER CHEST, THEN HOLDING HER HEAD IN HER HANDS, REPEATING, "I JUST DON'T FEEL WELL." WHEN INFORMED SHE WAS IN [place], PT STARTED TO CRY. PT IS VERY CONFUSED. RA. TELE MONITORED SINUS 63 WITH PAC'S. VSS. NO ACUTE CHANGES. BED ALARM ON.
--- NOTE | 2021-03-06 18:46 | NUR ---
76YR OLD FEMALE HERE WITH COVID PNEUMONIA. PT IS PLEASANTLY CONFUSED AND REQUIRES SBA UP IN ROOM. PT HAS BEEN TEARFULL AND CONFUSED AT TIMES T/O THE DAY STATING THAT SHE MISSES HER DAUGHTER RAYMOND AND HER PUPPIES. PT C/O BEING "EXHAUSTED" AND SHORT OF BREATH. LS DIMINISHED, PT SATS 93% ON RA. PT HAS HAD ELEVARED BS TODAY 403 AT DINNER TIME. MD NOTIFIED AND 1 TIME ORDER RECIEVED FOR 10UNITS NOW AND INCREASED TO MED S/S. ALL ORDERS REVIEWED AND IMPLEMENTED. D/C PLANS INCLUDE FINDING PLACEMENT FOR MEMORY CARE. NO OTHER CHANGES THIS SHIFT.
[2021-03-07 06:18] LABS: Bun/Creatinine Ratio 48.6 (12.0-20.0); Calcium, Blood 9.5 mg/dL (8.5-10.1); Creatinine, Blood 1.05 mg/dL (0.40-1.00); Potassium, Blood 4.5 mmol/L (3.5-5.5)
--- NOTE | 2021-03-07 08:15 | NUR ---
SHIFT SUMMARY NO ACUTE CHANGES. REMAINS PLEASANTLY CONFUSED. TEARFUL AND ANXIOUS AT TIMES. INCONTINENT, IN ATTENDS. PT DOESN'T USE CALL LIGHT. TELE MONITORS PT IN NSR IN THE 60'S. DISCHARGE IS PENDING PLACEMENT FOR MEMORY CARE.
--- NOTE | 2021-03-07 20:20 | NUR ---
SHIFT SUMMARY: NO ACUTE EVENTS TO REPORT THIS SHIFT. PT A&O X2; DEMENTIA; ANXIOUS; COOPERATIVE WITH CARE. AWAITING PLACEMENT. REPORT GIVEN TO ONCOMING RN.
--- NOTE | 2021-03-08 04:33 | NUR ---
SHIFT SUMMARY ADMITTED FOR COVID+. FULL CODE. TELEMETRY: NSR @ 60 BPM. AWAITING DC TO [facility] WHEN ARRANGEMENTS CAN BE MADE. SHE IS A&O TO SELF AND FAMILY. HX OF DEMENTIA
[2021-03-08 06:05] LABS: Hematocrit 45.7 % (33.0-51.0); Hemoglobin 15.4 g/dL (11.5-16.0); Mean Corpuscular HGB 31.2 pg (26.0-34.0); Mean Corpuscular HGB Conc 33.7 g/dL (31.5-36.5); Mean Corpuscular Volume 93 fL (80-100); Mean Platelet Volume 10.1 fL (9.1-12.4); NRBC ABSOLUTE 0.04 K/mm3 (0.00-0.02); NRBC Auto 0.3 /100 WBC (0.0-0.2); Platelet Count 393 K/mm3 (150-400); RDW Coefficient Variation 13.5 % (11.7-14.2); RDW Standard Deviation 44.9 fL (35.1-46.3); Red Blood Cell Count 4.93 M/mm3 (3.80-5.20); White Blood Cell Count 13.48 K/mm3 (4.00-11.30)
[2021-03-08 06:33] LABS: Bun/Creatinine Ratio 48.6 (12.0-20.0); Calcium, Blood 9.3 mg/dL (8.5-10.1); Creatinine, Blood 1.05 mg/dL (0.40-1.00); Potassium, Blood 4.5 mmol/L (3.5-5.5)
[2021-03-08 07:24] LABS: BASOPHILS PERCENT MAN 0 % (0-2); EOSINOPHILS PERCENT MAN 0 % (0-6); LYMPHOCYTES ABSOLUTE MAN 1.34 K/mm3 (0.84-5.20); LYMPHOCYTES PERCENT MAN 10 % (21-46); MONOCYTES ABSOLUTE MAN 0.53 K/mm3 (0.16-1.47); MONOCYTES PERCENT MAN 4 % (4-13); MYELOCYTE ABSOLUTE MAN 0.26 K/mm3 (0.00-0.00); MYELOCYTE PERCENT MAN 2 % (0-0); NEUTROPHILS ABSOLUTE MAN 11.32 K/mm3 (1.96-9.15); SEG NEUTROPHILS PERCENT MAN 84 % (41-73); TOTAL CELLS COUNTED 100
--- NOTE | 2021-03-08 18:40 | NUR ---
DISCHARGE NOTE PATIENT TRANSFERED OUT TO SNF THIS AFTERNOON AT 1430. PATIENT WAS GIVEN DISCHARGE INSTRUCTIONS.
== END 2021-03-08 17:00 | DRG 177 ==
LOC: ER 15:40 → PCU 20:30 → MEDS 03-02 14:24 → ENPENDDIS 03-07 11:28 → MEDS 03-08 17:00
PROVIDERS: Emergency Medicine; Family Medicine; Hospitalist; Student in an Organized Health Care Education/Training Program; ADMIT Internal Medicine
PROC: 8E0ZXY6 Isolation (ICD-10-PCS; principal; 2021-03-01)
PROC: XW033E5 Introduction of Remdesivir Anti-infective into Peripheral Vein, Percutaneous Approach, New Technology Group 5 (ICD-10-PCS; 2021-03-02)
PROC: 3E0DX3Z Introduction of Anti-inflammatory into Mouth and Pharynx, External Approach (ICD-10-PCS; 2021-03-03)
DX: U07.1 COVID-19 (principal); J12.82 Pneumonia due to coronavirus disease 2019; J96.01 Acute respiratory failure with hypoxia; Z68.41 Body mass index [BMI] 40.0-44.9, adult; G93.49 Other encephalopathy; E87.1 Hypo-osmolality and hyponatremia; N17.9 Acute kidney failure, unspecified; E11.9 Type 2 diabetes mellitus without complications; E66.9 Obesity, unspecified; E87.5 Hyperkalemia; E86.0 Dehydration; E78.5 Hyperlipidemia, unspecified; I10 Essential (primary) hypertension; F03.90 Unspecified dementia, unspecified severity, without behavioral disturbance, psychotic disturbance, mood disturbance, and anxiety; G47.33 Obstructive sleep apnea (adult) (pediatric); E03.9 Hypothyroidism, unspecified; Z85.3 Personal history of malignant neoplasm of breast; Z90.11 Acquired absence of right breast and nipple; Z90.710 Acquired absence of both cervix and uterus; Z90.722 Acquired absence of ovaries, bilateral; Z98.890 Other specified postprocedural states; Z79.4 Long term (current) use of insulin; Z79.899 Other long term (current) drug therapy
CPT/HCPCS: 36415; 70450; 71045; 80048; 80053; 81003; 82140; 82803; 82947; 83605; 83735; 84100; 84443; 84484; 85025; 87086; 93005; 93010; 94640; 94760; 94761; 94762; 97110; 97116; 97161; 97166; 97530; 97535; 99285-25; A9270; J0610; J1100; J1650; J1815; J1940; J2405; J7030; U0004

== ENCOUNTER 2021-03-29 11:49 | Emergency (ER) | payer MEDICARE, OTHER ==
[~2021-03-29] VITALS: Ht 167.6 cm; Wt 90.7 kg
[~2021-03-29 11:49] MED LIST changes: +ATOR10 PO; +CYMBALTA30 M1 PO; +DEXA4 PO; +DULO60 PO; +HYDR10 PO; +LETR2.5 PO; +MINO50 PO; +OZEMPIC0.25 MG/0. SC; +PREVAGEN PO; +TRESIBA FL100 UNIT/2 SC
[2021-03-29 13:11] LABS: BASOPHILS ABSOLUTE AUTO 0.04 K/mm3 (0.00-0.23); BASOPHILS PERCENT AUTO 1 % (0-2); EOSINOPHILS ABSOLUTE AUTO 0.18 K/mm3 (0.00-0.68); EOSINOPHILS PERCENT AUTO 3 % (0-6); Hematocrit 39.3 % (33.0-51.0); Hemoglobin 13.1 g/dL (11.5-16.0); IMMATURE GRAN ABSOLUTE AUTO 0.05 K/mm3 (0.00-0.10); IMMATURE GRAN PERCENT AUTO 1 % (0-1); LYMPHOCYTES ABSOLUTE AUTO 1.22 K/mm3 (0.84-5.20); LYMPHOCYTES PERCENT AUTO 18 % (21-46); MONOCYTES ABSOLUTE AUTO 0.52 K/mm3 (0.16-1.47); MONOCYTES PERCENT AUTO 8 % (4-13); Mean Corpuscular HGB 31.8 pg (26.0-34.0); Mean Corpuscular HGB Conc 33.3 g/dL (31.5-36.5); Mean Corpuscular Volume 95 fL (80-100); NEUTROPHILS ABSOLUTE AUTO 4.88 K/mm3 (1.96-9.15); NEUTROPHILS PERCENT AUTO 71 % (41-73); Platelet Count 225 K/mm3 (150-400); RDW Coefficient Variation 15.2 % (11.7-14.2); RDW Standard Deviation 52.2 fL (35.1-46.3); Red Blood Cell Count 4.12 M/mm3 (3.80-5.20); White Blood Cell Count 6.89 K/mm3 (4.00-11.30)
[2021-03-29] MEDS ORDERED: ALLO100 PO (13:19)
[2021-03-29] MEDS ORDERED: LEVSOD100 PO (13:21)
[2021-03-29 13:34] LABS: Alanine Aminotransfer (ALT/SGP 28 U/L (12-78); Albumin, Blood 2.2 g/dL (3.4-5.0); Albumin/Globulin Ratio 0.5 (0.8-1.8); Alk Phos 126 U/L (50-136); Anion Gap 7 mmol/L (6-16); Aspartate Aminotrans (AST/SGOT 26 U/L (12-37); Bilirubin, Total 0.3 mg/dL (0.1-1.0); Blood Urea Nitrogen 12 mg/dL (8-24); CO2, Blood 28 mmol/L (21-32); Calcium, Blood 9.2 mg/dL (8.5-10.1); Chloride, Blood 103 mmol/L (98-108); Globulin, Blood 4.3 g/dL (2.2-4.0); Glomerular Filtration Rate >60 (60-); Glucose, Blood 132 mg/dL (70-99); Potassium, Blood 4.4 mmol/L (3.5-5.5); Sodium, Blood 138 mmol/L (136-145); Total Protein, Blood 6.5 g/dL (6.4-8.2); Troponin I <0.015 ng/mL (0.000-0.040)
[2021-03-29 15:43] LABS: Source, Urine Catheter
[2021-03-29 15:57] LABS: Appearance, Urine Clear (Clear); Bilirubin, Urine Neg (Neg); Blood, Urine 1+ (Neg); Color, Urine Yellow (P-Yellow); Glucose Qualitative, Urine 1+ (Neg); Ketones, Urine Neg (Neg); Leukocyte Esterase, Urine 3+ (Neg); Nitrite, Urine Neg (Neg); Protein, Urine 1+ (Neg); Specific Gravity, Urine 1.015 (1.003-1.022); Urobilinogen, Urine NORM (Normal)
[2021-03-29 16:20] LABS: Bacteria Few /hpf; Renal Epithelial Rare /hpf (0-Rare); Squamous Epithelial Cells Rare /hpf (Few)
[2021-03-29 16:21] LABS: Hyaline Casts Rare /lpf (0-2); Mucus Mod (0-Heavy); WBC Cast 0-2 /lpf (0)
[2021-03-29] MEDS ORDERED: SULTRIDS PO (16:30)
== END 2021-03-29 19:49 | disposition home or self-care (01) ==
LOC: ER 11:49
PROVIDERS: Physician Assistant
DX: N39.0 Urinary tract infection, site not specified (principal); S09.90XD Unspecified injury of head, subsequent encounter; E11.9 Type 2 diabetes mellitus without complications; I10 Essential (primary) hypertension; E03.9 Hypothyroidism, unspecified; E78.5 Hyperlipidemia, unspecified; G47.30 Sleep apnea, unspecified; F03.90 Unspecified dementia, unspecified severity, without behavioral disturbance, psychotic disturbance, mood disturbance, and anxiety; Z79.82 Long term (current) use of aspirin; Z79.899 Other long term (current) drug therapy
CPT/HCPCS: 70450; 71045; 72125; 80053; 81001; 82140; 84484; 85025; 87086; 93005; 93010; 99285-25; A9270; J7030; P9612

== ENCOUNTER 2021-03-31 03:45 | Emergency (ER) | payer OTHER, MEDICARE ==
[~2021-03-31] VITALS: Ht 167.6 cm; Wt 90.7 kg
[~2021-03-31 03:45] MED LIST changes: +SULTRIDS PO
== END 2021-03-31 04:51 | disposition home or self-care (01) ==
LOC: ER 03:45
DX: Z04.3 Encounter for examination and observation following other accident (principal); Z79.4 Long term (current) use of insulin; Z79.82 Long term (current) use of aspirin; Z79.899 Other long term (current) drug therapy; E11.9 Type 2 diabetes mellitus without complications; I10 Essential (primary) hypertension; E03.9 Hypothyroidism, unspecified; E78.5 Hyperlipidemia, unspecified; G47.30 Sleep apnea, unspecified; F03.90 Unspecified dementia, unspecified severity, without behavioral disturbance, psychotic disturbance, mood disturbance, and anxiety; W19.XXXA Unspecified fall, initial encounter
CPT/HCPCS: 99283

== ENCOUNTER → 2022-12-19 | Outpatient (CLI) | payer MEDICARE, OTHER ==
[2022-12-20 14:56] LABS: Appearance, Urine Clear (Clear); Bilirubin, Urine Neg (Neg); Blood, Urine Neg (Neg); Color, Urine Yellow (P-Yellow); Glucose Qualitative, Urine 4+ (Neg); Ketones, Urine Neg (Neg); Leukocyte Esterase, Urine 3+ (Neg); Nitrite, Urine Neg (Neg); Protein, Urine 1+ (Neg); Source, Urine Clean Catch; Urobilinogen, Urine NORM (Normal)
[2022-12-20 15:29] LABS: Red Blood Cells, Urine 0-2 /hpf (0-2)
[2022-12-20 15:30] LABS: Bacteria Mod /hpf; Squamous Epithelial Cells Few /hpf (Few)
== END | disposition home or self-care (01) ==
LOC: LAB 19:30 → LAB SHORT 19:30
PROVIDERS: Internal Medicine
DX: N39.0 Urinary tract infection, site not specified (principal)
CPT/HCPCS: 81001; 87086

== ENCOUNTER → 2023-01-01 | Outpatient (CLI) | payer MEDICARE, OTHER ==
[2023-01-01 15:34] LABS: Source, Urine Clean Catch
[2023-01-01 15:58] LABS: Appearance, Urine Clear (Clear); Bilirubin, Urine Neg (Neg); Blood, Urine Neg (Neg); Color, Urine Yellow (P-Yellow); Glucose Qualitative, Urine Neg (Neg); Ketones, Urine Neg (Neg); Leukocyte Esterase, Urine Neg (Neg); Nitrite, Urine Neg (Neg); Protein, Urine 1+ (Neg); Urobilinogen, Urine NORM (Normal)
== END | disposition home or self-care (01) ==
LOC: LAB SHORT 15:00 → LAB 15:00
PROVIDERS: Internal Medicine
DX: N39.0 Urinary tract infection, site not specified (principal)

== ENCOUNTER → 2023-01-12 | Outpatient (CLI) | payer MEDICARE, OTHER | END | disposition home or self-care (01) | LOC: LAB 18:24 → LAB SHORT 18:24 | DX: B37.31 Acute candidiasis of vulva and vagina (principal); R30.0 Dysuria | CPT/HCPCS: 87086 ==

== ENCOUNTER → 2023-03-19 | Outpatient (CLI) | payer MEDICARE, OTHER | END | disposition home or self-care (01) | LOC: LAB SHORT 12:17 → PLD 12:17 | DX: C44.311 Basal cell carcinoma of skin of nose (principal) | CPT/HCPCS: 88305 ==

== ENCOUNTER 2023-05-06 20:07 | Emergency (ER) | payer MEDICARE, OTHER ==
[~2023-05-06] VITALS: Ht 157.5 cm; Wt 100.2 kg
[2023-05-06] MEDS ORDERED: ATOR20 PO (20:37)
[2023-05-06] MEDS ORDERED: DONE5 PO (20:38)
[2023-05-06] MEDS ORDERED: ESCI10 PO (20:39)
[2023-05-06 20:44] LABS: BASOPHILS ABSOLUTE AUTO 0.04 K/mm3 (0.00-0.23); BASOPHILS PERCENT AUTO 1 % (0-2); EOSINOPHILS ABSOLUTE AUTO 0.11 K/mm3 (0.00-0.68); EOSINOPHILS PERCENT AUTO 2 % (0-6); Hematocrit 40.3 % (33.0-51.0); Hemoglobin 13.2 g/dL (11.5-16.0); IMMATURE GRAN ABSOLUTE AUTO 0.03 K/mm3 (0.00-0.10); IMMATURE GRAN PERCENT AUTO 0 % (0-1); LYMPHOCYTES ABSOLUTE AUTO 1.89 K/mm3 (0.84-5.20); LYMPHOCYTES PERCENT AUTO 26 % (21-46); MONOCYTES PERCENT AUTO 8 % (4-13); Mean Corpuscular HGB Conc 32.8 g/dL (31.5-36.5); Mean Corpuscular Volume 98 fL (80-100); Mean Platelet Volume 11.6 fL (9.1-12.4); NEUTROPHILS ABSOLUTE AUTO 4.65 K/mm3 (1.96-9.15); NEUTROPHILS PERCENT AUTO 64 % (41-73); Platelet Count 174 K/mm3 (150-400); RDW Coefficient Variation 13.8 % (11.7-14.2); RDW Standard Deviation 49.2 fL (35.1-46.3); Red Blood Cell Count 4.13 M/mm3 (3.80-5.20); White Blood Cell Count 7.32 K/mm3 (4.00-11.30)
[2023-05-06] MEDS ORDERED: OZEMPIC0.25 MG/02 SQ (20:47)
[2023-05-06 21:00] LABS: Source, Urine Clean Catch
[2023-05-06 21:04] LABS: Albumin, Blood 2.8 g/dL (3.4-5.0); Albumin/Globulin Ratio 0.7 (0.8-1.8); Beta-hydroxybutyrate 1.3 mg/dL (0.2-2.8); Bilirubin, Total 0.3 mg/dL (0.1-1.0); Bun/Creatinine Ratio 26.6 (12.0-20.0); Calcium, Blood 9.4 mg/dL (8.5-10.1); Creatinine, Blood 0.9 mg/dL (0.40-1.00); Potassium, Blood 4.2 mmol/L (3.5-5.5); Total Protein, Blood 6.8 g/dL (6.4-8.2)
[2023-05-06 21:08] LABS: Appearance, Urine Clear (Clear); Bilirubin, Urine Neg (Neg); Blood, Urine Neg (Neg); Color, Urine Yellow (P-Yellow); Glucose Qualitative, Urine 4+ (Neg); Ketones, Urine Neg (Neg); Leukocyte Esterase, Urine 1+ (Neg); Nitrite, Urine Neg (Neg); Protein, Urine Neg (Neg); Urobilinogen, Urine NORM (Normal); pH, Urine 6.5 (5.0-8.0)
[2023-05-06 21:15] LABS: Bacteria Few /hpf; Red Blood Cells, Urine Not Seen /hpf (0-2); Squamous Epithelial Cells Rare /hpf (Few)
[2023-05-06 21:37] VITALS: BP 127/51
[2023-05-07] MEDS ORDERED: ACET500 (01:37)
[2023-05-07] MEDS ORDERED: LOPERAMIDE212 (01:38)
[2023-05-07] MEDS ORDERED: METO25ER (01:39)
[2023-05-07] MEDS ORDERED: QUET25 (01:40)
[2023-05-07] MEDS ORDERED: NYAMYC1513 (01:40)
[2023-05-07] MEDS ORDERED: MIRALAX17 GM (01:40)
[2023-05-07] MEDS ORDERED: SENNA LAXATIVE8.6 MG (01:41)
[2023-05-07] MEDS ORDERED: VITAMIN D310 MC4 (01:42)
== END 2023-05-06 21:47 | disposition home or self-care (01) ==
LOC: ER 20:07
PROVIDERS: Student in an Organized Health Care Education/Training Program
DX: E11.65 Type 2 diabetes mellitus with hyperglycemia (principal); J34.89 Other specified disorders of nose and nasal sinuses; I10 Essential (primary) hypertension; E03.9 Hypothyroidism, unspecified; E78.5 Hyperlipidemia, unspecified; F03.90 Unspecified dementia, unspecified severity, without behavioral disturbance, psychotic disturbance, mood disturbance, and anxiety; Z88.8 Allergy status to other drugs, medicaments and biological substances; Z91.048 Other nonmedicinal substance allergy status; Z88.0 Allergy status to penicillin; Z79.899 Other long term (current) drug therapy; Z79.82 Long term (current) use of aspirin; Z79.4 Long term (current) use of insulin
CPT/HCPCS: 80053; 81001; 82010; 82947; 85025; 87086; 93005; 93010; 99285-25; J1815

== ENCOUNTER → 2023-05-09 | Outpatient (CLI) | payer MEDICARE, OTHER ==
[~2023-05-09] MED LIST changes: +ACET500; +DONE5 PO; +ESCI10 PO; +LOPERAMIDE212; +METO25ER; +MIRALAX17 GM; +NYAMYC1513; +OZEMPIC0.25 MG/02 SQ; +QUET25; +SENNA LAXATIVE8.6 MG; +VITAMIN D310 MC4
[2023-05-10 14:24] LABS: Source, Urine Voided
[2023-05-10 16:05] LABS: Appearance, Urine Clear (Clear); Bilirubin, Urine Neg (Neg); Blood, Urine 1+ (Neg); Color, Urine Yellow (P-Yellow); Glucose Qualitative, Urine 3+ (Neg); Ketones, Urine Neg (Neg); Leukocyte Esterase, Urine 2+ (Neg); Nitrite, Urine Neg (Neg); Protein, Urine Neg (Neg); Specific Gravity, Urine 1.015 (1.003-1.022); Urobilinogen, Urine NORM (Normal)
[2023-05-10 16:18] LABS: Bacteria Few /hpf; Squamous Epithelial Cells Few /hpf (Few)
== END ==
LOC: LAB SHORT 15:30 → LAB 15:30
PROVIDERS: Internal Medicine
DX: R31.0 Gross hematuria (principal)
CPT/HCPCS: 81001; 87086

== ENCOUNTER → 2023-05-30 | Outpatient (CLI) | payer MEDICARE, OTHER ==
[2023-05-30 11:39] LABS: Appearance, Urine Clear (Clear); Bilirubin, Urine Neg (Neg); Blood, Urine Neg (Neg); Color, Urine Yellow (P-Yellow); Glucose Qualitative, Urine Neg (Neg); Ketones, Urine Neg (Neg); Leukocyte Esterase, Urine Neg (Neg); Nitrite, Urine Neg (Neg); Protein, Urine Neg (Neg); Specific Gravity, Urine 1.015 (1.003-1.022); Urobilinogen, Urine NORM (Normal)
== END | disposition home or self-care (01) ==
LOC: LAB 03:35 → LAB SHORT 03:35
PROVIDERS: Internal Medicine
DX: N39.0 Urinary tract infection, site not specified (principal)
CPT/HCPCS: 81003

== ENCOUNTER → 2023-07-26 | Outpatient (CLI) | payer MEDICARE, OTHER ==
[2023-07-26 15:53] LABS: Appearance, Urine Clear (Clear); Bilirubin, Urine Neg (Neg); Blood, Urine Neg (Neg); Color, Urine Yellow (P-Yellow); Glucose Qualitative, Urine Neg (Neg); Ketones, Urine Neg (Neg); Leukocyte Esterase, Urine Neg (Neg); Nitrite, Urine Neg (Neg); Protein, Urine Neg (Neg); Urobilinogen, Urine NORM (Normal)
== END ==
LOC: LAB SHORT 14:53 → LAB 14:53
PROVIDERS: Internal Medicine
DX: N39.0 Urinary tract infection, site not specified (principal)
CPT/HCPCS: 81003

== ENCOUNTER → 2023-11-02 | Outpatient (CLI) | payer MEDICARE, OTHER | LOC: LAB SHORT 17:41 → LAB 17:41 | DX: N39.0 Urinary tract infection, site not specified (principal) ==

== ENCOUNTER → 2024-04-02 | Outpatient (CLI) | payer MEDICARE, OTHER ==
[2024-04-02 17:59] LABS: Source, Urine Voided
[2024-04-02 18:45] LABS: Appearance, Urine Clear (Clear); Bilirubin, Urine Neg (Neg); Blood, Urine Neg (Neg); Color, Urine Yellow (P-Yellow); Glucose Qualitative, Urine Neg (Neg); Ketones, Urine Neg (Neg); Leukocyte Esterase, Urine 1+ (Neg); Nitrite, Urine Neg (Neg); Protein, Urine Neg (Neg); Urobilinogen, Urine NORM (Normal)
[2024-04-02 19:05] LABS: Bacteria Few /hpf; Other Crystals Mod /hpf; Squamous Epithelial Cells Few /hpf (Few)
== END ==
LOC: LAB SHORT 17:55 → LAB 17:55
PROVIDERS: Internal Medicine
DX: R41.82 Altered mental status, unspecified (principal); N30.90 Cystitis, unspecified without hematuria
CPT/HCPCS: 81001; 87086

== ENCOUNTER → 2024-10-21 | Outpatient (CLI) | payer MEDICARE, OTHER ==
[2024-10-21 11:06] LABS: Source, Urine Clean Catch
[2024-10-21 11:58] LABS: Appearance, Urine Clear (Clear); Bilirubin, Urine Neg (Neg); Blood, Urine Neg (Neg); Color, Urine Yellow (P-Yellow); Glucose Qualitative, Urine Neg (Neg); Ketones, Urine Neg (Neg); Leukocyte Esterase, Urine 1+ (Neg); Nitrite, Urine Neg (Neg); Protein, Urine 1+ (Neg); Specific Gravity, Urine 1.015 (1.003-1.022); Urobilinogen, Urine NORM (Normal)
[2024-10-21 12:30] LABS: Bacteria Mod /hpf; Red Blood Cells, Urine 0-2 /hpf (0-2); Squamous Epithelial Cells Mod /hpf (Few)
== END | disposition home or self-care (01) ==
LOC: LAB SHORT 11:03 → LAB 11:03
PROVIDERS: Internal Medicine
DX: R41.82 Altered mental status, unspecified (principal)
CPT/HCPCS: 81001; 87086

== ENCOUNTER → 2024-10-28 | Outpatient (CLI) | payer MEDICARE, OTHER ==
[2024-10-28 11:08] LABS: Source, Urine Clean Catch
[2024-10-28 11:53] LABS: Appearance, Urine Clear (Clear); Bilirubin, Urine Neg (Neg); Blood, Urine Neg (Neg); Color, Urine Yellow (P-Yellow); Glucose Qualitative, Urine Neg (Neg); Ketones, Urine Neg (Neg); Leukocyte Esterase, Urine Neg (Neg); Nitrite, Urine Neg (Neg); Protein, Urine Neg (Neg); Urobilinogen, Urine NORM (Normal)
== END | disposition home or self-care (01) ==
LOC: LAB 11:02 → LAB SHORT 11:02
PROVIDERS: Internal Medicine
DX: R82.90 Unspecified abnormal findings in urine (principal); R41.82 Altered mental status, unspecified
CPT/HCPCS: 81003